=== PATIENT | female | born 1985 | race Caucasian/White ===

== ENCOUNTER 2025-07-06 21:22 | Emergency (ER) | payer MEDICAID ==
[~2025-07-06] VITALS: Ht 154.9 cm; Wt 68.0 kg
[2025-07-06 21:23] VITALS: O2SAT 100
[2025-07-06 21:47] VITALS: TEMP 36.6
[2025-07-06] MEDS: ONDANSETRON HCL 4MG/2ML INJ IV ONE (22:55)
[2025-07-06] MEDS: MORPHINE SULFATE 4 MG/ML INJ (FOR IV/IM USE) IV ONE (22:55)
[2025-07-06 23:28] LABS: BASOPHILS % 0.8 % (0.0-2.0); EOSINOPHILS % 0.7 % (0.0-5.0); HEMATOCRIT. 34.9 % (36.0-48.0); HEMOGLOBIN. 11.3 g/dL (12.0-16.0); LYMPHOCYTES % 20.0 % (20.0-50.0); MEAN PLATELET VOLUME 9.1 fl (7.4-10.4); MONOCYTES % 7.4 % (2.0-8.0); NEUTROPHILS % 71.1 % (40.0-76.0); PLATELET 345 x1000/uL (130-400); RED BLOOD CELL COUNT 4.64 mill/uL (4.2-5.4); RED CELL DISTRIBUTION WIDTH 15.2 % (11.6-14.6)
[2025-07-06 23:31] LABS: CREATININE 0.8 mg/dL (0.6-1.0); UREA NITROGEN BLOOD 10 mg/dL (9-23)
[2025-07-06 23:34] LABS: HCG SCREEN NEGATIVE
[2025-07-07] MEDS: LEVETIRACETAM 1000MG PREMIX 100 ML IV SCH (00:58)
[2025-07-07 01:12] VITALS: BP 144/66; PULSE 61; RESP 18; O2SAT 100
[2025-07-07] MEDS ORDERED: IOHEXOL-350 100 ML BOTTLE ONE (05:56)
== END 2025-07-07 01:59 | disposition short-term general hospital (02) ==
LOC: ER 21:22 → CMPBEDREQ 07-07 08:03
DX: S06.6X9A Traumatic subarachnoid hemorrhage with loss of consciousness of unspecified duration, initial encounter (principal); X58.XXXA Exposure to other specified factors, initial encounter; Y93.89 Activity, other specified; Y92.89 Other specified places as the place of occurrence of the external cause; Y99.8 Other external cause status
CPT/HCPCS: 99291; 96375; 80048; 84703; 85025; 36415; 70496; 96365; 70450; J2405; J2270; Q9967; J1953